=== PATIENT | female | born 1990 | race African-American/Black ===

== ENCOUNTER 2019-01-14 20:54 | Emergency (ER) | payer BC, OTHER ==
[2019-01-14 21:09] VITALS: BP 108/69; PULSE 76; TEMP 97.9; BMI 36.3
--- NOTE | 2019-01-14 22:56 | PDOC ---
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 Pain is 2/10 states throbbing worse with palpation of the tragus. No discharge from the ear. States that she has been using a lot of peroxide in the ER and now has stinging with installation. PMHX: As above PSOCHX: (+) cigar 2/day, (-) etoh, (-) drugs ALL: NKDA GENERAL/CONSTITUTIONAL: [No fever or chills. No weakness. No weight change.] HEAD, EYES, EARS, NOSE AND THROAT: [No change in vision. (+) ear pain (-) discharge. No sore throat.] CARDIOVASCULAR: [No chest pain or shortness of breath.] RESPIRATORY: [No cough, wheezing, or hemoptysis.] MUSCULOSKELETAL: [No joint or muscle swelling or pain. No neck or back pain.] SKIN AND BREASTS: [No rash or easy bruising.] NEUROLOGIC: [No headache, vertigo, loss of consciousness, or loss of sensation.] PSYCHIATRIC: [No depression or anxiety.] ALLERGIC/IMMUNOLOGIC: [No hives or skin allergy. No latex allergy.] GENERAL: [The patient is awake, alert, and fully oriented, in no acute distress. ] HEAD: [Normal with no signs of trauma.] EYES: [Pupils equal, round and reactive to light, extraocular movements intact, sclera anicteric, conjunctiva clear.] ENT: [right ears normal, left ear External canal with erythema, tender swelling below the proximal to the tragus, TM not visible, nares patent, oropharynx clear without exudates. Moist mucous membranes.] NECK: [Normal range of motion, supple without lymphadenopathy, JVD, or masses.] LUNGS: [Breath sounds equal, clear to auscultation bilaterally. No wheezes, and no crackles.] HEART: [Regular rate and rhythm, normal S1 and S2 without murmur, rub.] EXTREMITIES: [Normal range of motion, no edema. No clubbing or cyanosis. No cords, erythema, or tenderness.] NEUROLOGICAL: [Cranial nerves II through XII grossly intact. Normal speech, normal gait.] PSYCH: [Normal mood, normal affect.] SKIN: [Warm, Dry, normal turgor, no rashes or lesions noted.] Past History - Past Medical History Allergies/Adverse Reactions: Allergies Allergy/AdvReac Type Severity Reaction Status Date / Time No Known Allergies Allergy Verified 05/18/17 13:14 Home Medications: Ambulatory Orders Penicillin V Potassium [Pen Vee K -] 500 mg PO TID #30 tablet 06/22/15 Cephalexin [Keflex] 500 mg PO TID #20 capsule 01/14/19 Neomycin/Polymyxin B/Hydrocort [Cmspjupf-Okmqlauxq-Qs Ear Susp] 10 ml OT BID #1 vial 01/14/19 COPD: No - Psycho Social/Smoking Cessation Hx Smoking History: Current some day smoker Have you smoked in the past 12 months: No Number of Cigarettes Smoked Daily: 3 Information on smoking cessation initiated: Yes 'Breaking Loose' booklet given: 06/22/15 Hx Alcohol Use: Yes Drug/Substance Use Hx: No Substance Use Type: None *Physical Exam - Vital Signs Last Vital Signs Temp Pulse Resp BP Pulse Ox 97.9 F 76 75 H 108/69 100 01/14/19 21:04 01/14/19 21:04 01/14/19 21:04 01/14/19 21:04 01/14/19 21:04 Medical Decision Making - Medical Decision Making 01/14/19 22:38 Patient is a 28-year-old female with 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 Pain is 2/10 states throbbing worse with palpation of the tragus. No discharge from the ear. States that she has been using a lot of peroxide in the ER and now has stinging with installation. Symptoms and exam consistent with otitis externa, tender follicular swelling on exam. Will give Keflex for follicular abscess, and drops for the ear. I discussed the physical exam findings, ancillary test results and final diagnoses with the patient. I answered all of the patient's questions. The patient was satisfied with the care received and felt comfortable with the discharge plan and treatment plan. The Patient agrees to follow up with the primary care physician within 24-72 hours. Discharge - Discharge Information Problems reviewed: Yes Clinical Impression/Diagnosis: Abscess Otitis externa Qualifiers: Otitis externa type: unspecified type Chronicity: acute Laterality: left Qualified Code(s): H60.502 - Unspecified acute noninfective otitis externa, left ear Condition: Stable Disposition: HOME - Additional Discharge Information Prescriptions: Cephalexin [Keflex] 500 mg PO TID #20 capsule Neomycin/Polymyxin B/Hydrocort [Zmrltihe-Ozyrbvxuq-Xz Ear Susp] 10 ml OT BID #1 vial - Follow up/Referral Referrals: Steph Arceo [Primary Care Provider] - - Patient Discharge Instructions Patient Printed Discharge Instructions: DI for Otitis Externa Additional Instructions: Your Discharge Instructions: You must call primary care physician within 24 hours to arrange follow-up. Return to the Emergency Department with any new, persistent or worsening symptoms, for fever, chills, SOB, dizziness or any other concerning changes that may occur. Follow-up with ENT if symptoms are not resolved. - Post Discharge Activity
== END 2019-01-15 00:04 | disposition home or self-care (01) ==
LOC: JERFT 20:54 → JER 20:54
DX: H60.502 Unspecified acute noninfective otitis externa, left ear (principal); H60.02 Abscess of left external ear
CPT/HCPCS: 99281-25

== ENCOUNTER 2019-11-29 14:18 | Emergency (ER) | payer SELFPAY ==
[2019-11-29 14:27] VITALS: BP 119/75; PULSE 74; BMI 31.4
--- NOTE | 2019-11-29 15:07 | PDOC ---
History of Present Illness - General Chief Complaint: Lightheaded Stated Complaint: LIGHTHEAD Time Seen by Provider: 11/29/19 14:53 History Source: Patient Exam Limitations: No Limitations - History of Present Illness Initial Comments: 11/29/19 15:04 HISTORY OF PRESENT ILLNESS: 29-year-old woman denies medical history who presents to the emergency department for "I think I have diabetes." Patient reports intermittent dizziness and paresthesias over the past 2 to 3 months but presently denies all symptoms. Patient also states she has intermittent urinary frequency. She denies all complaints at present. No recent travel or sick contacts. PAST MEDICAL HISTORY: Denies past medical history SURGICAL HISTORY: Denies ALLERGIES: No known drug allergies REVIEW OF SYSTEMS General/Constitutional: Denies fever or chills. Denies weakness, weight change. HEENT: Denies change in vision. Denies ear pain or discharge. Denies sore throat. Cardiovascular: Denies chest pain or shortness of breath. Respiratory: Denies cough, wheezing, or hemoptysis. Gastrointestinal: Denies nausea, vomiting, diarrhea or constipation. Denies rectal bleeding. Genitourinary: Denies dysuria, frequency, or change in urination. Musculoskeletal: Denies joint or muscle swelling or pain. Denies neck or back pain. Skin and breasts: Denies rash or easy bruising. Neurologic: Denies headache, vertigo, loss of consciousness, or loss of sensation. Psychiatric: Denies depression or anxiety. Endocrine: Denies increased thirst. Denies abnormal weight change. Hematologic/Lymphatic: Denies anemia, easy bleeding, or history of blood clots. Allergic/Immunologic: Denies hives or skin allergy. Denies latex allergy. PHYSICAL EXAM General Appearance: Well-appearing, appropriately dressed. No apparent di stress, no intoxication. HEENT: EOMI, PERRLA, normal ENT inspection, normal voice, TMs normal, pharynx normal. No conjunctival pallor. No photophobia, scleral icterus. Respiratory/Chest: Lungs CTAB. No shortness of breath, chest tenderness, respiratory distress, accessory muscle use. No crackles, rales, rhonchi, stridor, wheezing, dullness Cardiovascular: RRR. S1, S2. No JVD, murmur, bradycardia, tachycardia. Gastrointestinal/Abdominal: Normal bowel sounds. Abdomen soft, non-distended. No tenderness or rebound tenderness. No organomegaly, pulsatile mass, guarding, hernia, hepatomegaly, splenomegaly. Musculoskeletal/Extremities: Normal inspection. FROM of all extremities, normal capillary refill. Pelvis Stable. No CVA tenderness. No tenderness to extremities, pedal edema, swelling, erythema or deformity. Neurologic: miller rod mill II-XII intact. Fully oriented, alert. Appropriate mood/affect. Motor strength 5/5. No appreciable EOM palsy, facial droop or sensory deficit. Normal two-point discrimination present. Gait is steady. Normal tandem gait. 11/29/19 15:06 Past History - Medical History Allergies/Adverse Reactions: Allergies Allergy/AdvReac Type Severity Reaction Status Date / Time No Known Allergies Allergy Verified 11/29/19 14:27 Home Medications: Ambulatory Orders Penicillin V Potassium [Pen Vee K -] 500 mg PO TID #30 tablet 06/22/15 Cephalexin [Keflex] 500 mg PO TID #20 capsule 01/14/19 Neomycin/Polymyxin B/Hydrocort [Xuuysxoa-Xvyfembeh-Hb Ear Susp] 10 ml OT BID #1 vial 01/14/19 COPD: No - Reproductive History Is Patient Now?: No - Psycho-Social/Smoking History Smoking History: Never smoked Have you smoked in the past 12 months: No Number of Cigarettes Smoked Daily: 3 'Breaking Loose' booklet given: 06/22/15 *Physical Exam - Vital Signs Last Vital Signs Temp Pulse Resp BP Pulse Ox 74 18 119/75 100 11/29/19 14:21 11/29/19 14:21 11/29/19 14:21 11/29/19 14:21 Medical Decision Making - Medical Decision Making 11/29/19 15:06 A/P: 29-year-old woman with intermittent dizziness and upper extremity paresthesias for 2 to 3 months denies presently and has not had in the past 4 days. Physical exam is unremarkable Urinalysis, urine culture, urine Fingerstick Reassess 11/29/19 15:48 Laboratory Tests 11/29/19 11/29/19 15:12 15:21 POC Glucometer 96 Urine Color Yellow Urine Appearance Clear Urine pH 7.0 Ur Specific [place] 1.015 Urine Protein Negative Urine Glucose (UA) Negative Urine Ketones Negative Urine Blood Negative Urine Nitrite Negative Urine Bilirubin Negative Urine Urobilinogen 0.2 Ur Leukocyte Esterase Negative Urine HCG, Qual Negative Patient has normal exam, normal urine and a PGM of 96 I feel safe to discharge home to follow-up with primary doctor. Patient reports he does not have a primary doctor so 1 will be provided. I discussed the physical exam findings, ancillary test results and final diagnoses with the patient. I answered all of the patient's questions. The patient was satisfied with the care received and felt comfortable with the discharge plan and treatment plan. The patient will call their primary care physician within 24 hours to arrange follow-up and will return to the Emergency Department with any new, persistent or worsening symptoms. Portions of this note have been documented using voice recognition software. As a result, errors may occur in the pilot plant supervisor process. Effort has been made to correct all grammatical and pilot plant supervisor error, but some may have been missed which may produce sporadic inaccurate pilot plant supervisor or nonsensical phrases. Discharge - Discharge Information Problems reviewed: Yes Clinical Impression/Diagnosis: Paresthesia and pain of both upper extremities Condition: Stable Disposition: HOME - Admission No - Follow up/Referral Referrals: [facility] [place] [facility] [place] [Provider Group] - Patient Discharge Instructions Additional Instructions: You be given a referral for a primary doctor. Call to schedule an appointment for continued evaluation of your intermittent symptoms. Your blood sugar today was normal. Your test today was negative. Your urinalysis is not suggestive of an infection. Return to the emergency department for any new or worsening symptoms. Thank you very much for choosing us to provide your emergent healthcare needs. - Post Discharge Activity Work/Back to School Note: Back to Work
[2019-11-29 15:31] LABS: URINE APPEARANCE CLEAR; URINE BILIRUBIN NEGATIVE (NEGATIVE); URINE COLOR YELLOW; URINE GLUCOSE (UA) NEGATIVE (NEGATIVE); URINE KETONE NEGATIVE (NEGATIVE); URINE LEUK ESTERASE NEGATIVE (NEGATIVE); URINE NITRITE NEGATIVE (NEGATIVE); URINE PROTEIN NEGATIVE (NEGATIVE); URINE UROBILINOGEN 0.2 mg/dL (0.2-1.0)
[2019-11-29 15:36] LABS: HCG,QUALITATIVE URINE Negative
== END 2019-11-29 16:11 | disposition home or self-care (01) ==
LOC: JERFT 14:18
DX: M79.602 Pain in left arm (principal); M79.601 Pain in right arm
CPT/HCPCS: 81003; 82962; 84703; 87086; 99283-25

== ENCOUNTER 2021-02-11 20:38 | Emergency (ER) | payer OTHER ==
[2021-02-11 20:44] VITALS: BP 108/66; PULSE 82; TEMP 97; BMI 32.9
== END 2021-02-12 00:08 | disposition home or self-care (01) ==
LOC: JERFT 20:38
DX: L03.116 Cellulitis of left lower limb (principal)
CPT/HCPCS: 73590-TC-LT-FY; 76882-TC-RT-FY; 93971-TC; 99285-25

== ENCOUNTER 2021-03-12 11:55 | Emergency (ER) | payer OTHER ==
[2021-03-12 12:05] VITALS: BP 118/86; PULSE 78; TEMP 98; BMI 31.4
== END 2021-03-12 13:56 | disposition home or self-care (01) ==
LOC: JERFT 11:55
DX: Z48.00 Encounter for change or removal of nonsurgical wound dressing (principal)
CPT/HCPCS: 99281-25

== ENCOUNTER 2022-02-12 11:36 | Emergency (ER) | payer OTHER ==
[2022-02-12 11:58] VITALS: BP 112/80; PULSE 73; RESP 18; TEMP 98.4; BMI 32.3
[2022-02-12] MEDS ORDERED: TETRACAINE 0.5% HCL 0.6ML DROPPER.BOTTLE OD ONE (12:35)
[2022-02-12] MEDS ORDERED: FLUORESCEIN NA 1 EA STRIP OD ONE (12:35)
[2022-02-12] MEDS ORDERED: FLUORESCEIN NA 1 EA STRIP ONE ×2 (12:45→12:54)
[2022-02-12] MEDS ORDERED: TETRACAINE 0.5% OPHTH SOLN 2 ML BOTTLE ONE ×2 (12:45→12:55)
== END 2022-02-12 13:41 | disposition home or self-care (01) ==
LOC: JER 11:36 → JERFT 11:36
DX: L01.00 Impetigo, unspecified (principal)
CPT/HCPCS: 99283-25

== ENCOUNTER 2022-05-09 14:38 | Emergency (ER) | payer OTHER ==
[2022-05-09 14:43] VITALS: BP 124/83; PULSE 88; RESP 18; TEMP 98; BMI 31.0
[2022-05-09] MEDS ORDERED: MAG HYDROX/AL HYDROX/SIMETH 30 ML UNIT-DOSE CUP PO ONE (15:54)
[2022-05-09] MEDS ORDERED: FAMOTIDINE 20 MG/50 ML IVPB 20 MG/50 ML MG IVPB ONE ×2 (15:54→16:03)
[2022-05-09] MEDS ORDERED: MAG HYDROX/AL HYDROX/SIMETH 30 ML UNIT-DOSE CUP ONE (16:03)
[2022-05-09] MEDS ORDERED: ACETAMINOPHEN 500 MG TABLET (FP) PO ONE (16:09)
[2022-05-09] MEDS ORDERED: FAMOTIDINE 10 MG TABLET PO ONE (16:09)
[2022-05-09] MEDS ORDERED: FAMOTIDINE 20 MG TABLET ONE (16:09)
[2022-05-09] MEDS ORDERED: ACETAMINOPHEN 325 MG TABLET (FP) ONE (16:10)
== END 2022-05-09 17:11 | disposition home or self-care (01) ==
LOC: JER 14:38
DX: R10.13 Epigastric pain (principal)
CPT/HCPCS: 99283-25